=== PATIENT | male | born 2000 | race Caucasian/White ===

== ENCOUNTER 2025-04-18 20:40 | Emergency (ER) | payer OTHER, SELFPAY ==
[2025-04-18] MEDS ORDERED: ASPIRIN 81 MG CHEWABLE TABLET ONE (21:23)
[2025-04-18 21:29] LABS: Absolute Lymphocytes (CBC) 2.5 K/uL (0.7-4.9); Hematocrit 47.0 % (39.6-49.0); Hemoglobin 15.7 g/dL (13.6-17.9); MCH 29.4 pg (27.0-35.0); MCHC 33.4 g/dL (32.0-36.0); MCV 88.2 fL (80-100); MPV 8.7 fL (7.6-11.3); Nucleated RBC Absolute Count 0.0 (0-0); Nucleated Red Blood Cells % 0.2 % (0-0); RBC Red Blood Cell Count 5.33 M/uL (4.33-5.43); White Blood Count 7.10 thou/uL (4.3-10.9)
[2025-04-18 21:32] LABS: PT Prothrombin Time 12.6 SECONDS (10-13.0); Protime INR 1.12
[2025-04-18 21:45] LABS: ALT/SGPT 63 U/L (16-61); AST/SGOT 41 U/L (15-37); Albumin 4.0 g/dL (3.4-5.0); Albumin/Globulin Ratio 1.1 (1.1-1.8); Alkaline Phosphatase 96 U/L (45-117); Anion Gap 8.7 mEq/L (5.0-15.0); BUN Blood Urea Nitrogen 12 mg/dL (7-18); Globulin 3.7 g/dL (2.3-3.5); Glucose Level 81 mg/dL (74-106); Magnesium 2.2 mg/dL (1.6-2.4); NT PRO-BNP 20 pg/mL (<125); Potassium 3.7 mEq/L (3.5-5.1)
[2025-04-18 21:46] LABS: Bilirubin Indirect, Calculated 0.3 mg/dL (0.2-0.8); Troponin High Sensitivity < 3.0 pg/mL (<58.9)
--- NOTE | 2025-04-18 22:00 | RAD REPORT ---
EXAMINATION: ONE VIEW CHEST XR CLINICAL INDICATION: CHEST PAIN TECHNIQUE: Frontal chest projection is submitted. Examination is limited by patient positioning and t echnique. COMPARISON: No prior exam. FINDINGS: The lungs are well inflated and clear. The heart is upper limit of normal in size. No displaced fract ures identified. IMPRESSION: No acute intrathoracic abnormalities.
[2025-04-18] MEDS ORDERED: LIDOCAINE VISCOUS 2% 10ML ORAL SOLN ONE (22:52)
[2025-04-18] MEDS ORDERED: MAGNES/ALUMIN/SIMET 30ML UCUP ONE (22:52)
--- NOTE | 2025-04-18 23:38 | EDPHYS ---
Physician Documentation [facility] Name: Edgar Cardenas Age: 24 yrs Sex: Male : 2000 Arrival Date: 04/18/2025 Time: 20:40 Bed 8 Private MD: ED Physician Gerardo Peck HPI: 04/19 01:11 This 24 yrs old Male presents to ER via Ambulatory with complaints of Chest Pain. sb4 01:11 Patient reports left-sided anterior wall chest pain for approximately 2 to 3 weeks now. sb4 He states that sometimes it radiates to the right side of his chest and sometimes radiates to his left shoulder. States that sometimes he feels short of breath. But denies any dizziness, diaphoresis, nausea, vomiting. Denies any medical history. States that his pain was improving with famotidine but wanted to come in to be evaluated to make sure nothing else was going on. Historical: - Allergies: 04/18 20:53 No Known Allergies; br2 - Home Meds: 20:53 None [Active]; br2 - Immunization history:: Adult Immunizations not up to date. - Infectious Disease History:: Denies. - Social history:: Smoking status: Patient denies any tobacco usage or history of. Patient uses alcohol, occasionally. Patient/guardian denies using street drugs. ROS: 04/19 01:11 Constitutional: Negative for fever, chills, and weight loss, sb4 Cardiovascular: Positive for chest pain, All other systems are negative, Exam: 01:11 Constitutional: This is a well developed, well nourished patient who is awake, alert, sb4 and in no acute distress. Head/Face: Normocephalic, atraumatic. Eyes: Extra-ocular motions intact. Periorbital areas with no swelling, redness, or edema. ENT: Mucous membranes moist. Cardiovascular: Regular rate and rhythm with a normal S1 and S2. Respiratory: No increased work of breathing, no retractions or nasal flaring. Abdomen/GI: Soft, non-tender, no distension. Skin: Warm, dry with normal turgor. Normal color with no rashes, no lesions, and no evidence of cellulitis. Vital Signs: 04/18 20:49 BP 146 / 92; Pulse 65; Resp 18; Pulse Ox 100% ; Weight 108.86 kg; Height 5 ft. 10 in. ; br2 Pain 9/10; 21:30 BP 122 / 71; Pulse 57; Resp 16; Pulse Ox 100% on R/A; kd3 23:00 BP 135 / 96; Pulse 15; Resp 62; Pulse Ox 98% on R/A; kd3 04/19 00:08 BP 115 / 74; Pulse 84; Resp 16; Pulse Ox 98% on R/A; kd3 04/18 20:49 Body Mass Index 34.44 (108.86 kg, 177.8 cm) br2 04/18 20:49 Pain Scale: Adult br2 MDM: 04/18 20:52 Medical Screening Exam initiated sb4 04/19 01:12 Differential diagnosis: Pneumonia, costochondritis, pericarditis, anxiety, GERD, sb4 gastritis, esophagitis. Data reviewed: vital signs, nurses notes, lab test result(s), EKG, radiologic studies, plain films, and as a result, I will discharge patient. Historians other than the Patient: Spouse/Significant Other: Significant other. Care significantly affected by the following chronic conditions: Obesity. Scoring Tools HEART Score: History: ECG: Age: Risk Factors: 1 or 2 risk factors (1), Troponin: Total Score = 1. Counseling: I had a detailed discussion with the patient and/or guardian regarding the historical points, exam findings, and any diagnostic results supporting the discharge/admit diagnosis, lab results, radiology results, the need for outpatient follow up, for definitive care, to return to the emergency department if symptoms worsen or persist or if there are any questions or concerns that arise at home. Special discussion: Based on the patient's history, exam, and Dx evaluation, there is no indication for emergent intervention or inpatient Tx. It is understood by the patient/guardian that if the Sx's persist or worsen they need to return immediately for re-evaluation. 04/18 21:13 Order name: Basic Metabolic Panel; Complete Time: 21:46 sb4 04/18 21:13 Order name: CBC with Diff; Complete Time: 21:31 sb4 04/18 21:13 Order name: LFT's; Complete Time: 21:46 sb4 04/18 21:13 Order name: Magnesium; Complete Time: 21:46 sb4 04/18 21:13 Order name: NT PRO-BNP; Complete Time: 21:46 sb4 04/18 21:13 Order name: PT-INR; Complete Time: 21:37 sb4 04/18 21:13 Order name: Troponin HS; Complete Time: 21:46 sb4 04/18 21:13 Order name: XRAY Chest (1 view); Complete Time: 22:03 sb4 04/18 21:13 Order name: Cardiac monitoring; Complete Time: 21:14 sb4 04/18 21:13 Order name: EKG - Nurse/Tech; Complete Time: 21:14 sb4 04/18 21:13 Order name: IV Saline Lock; Complete Time: 21:14 sb4 04/18 21:13 Order name: Labs collected and sent; Complete Time: 21:25 sb4 04/18 21:13 Order name: O2 Per Protocol; Complete Time: 21:18 sb4 04/18 21:13 Order name: O2 Sat Monitoring; Complete Time: 21:18 sb4 EC:43 Rate is 60 beats/min. Rhythm is regular, Normal Sinus Rhythm. OR interval is normal at sb4 174 msec. QRS interval is normal at 82 msec. QT interval is normal at 376 msec. No Q waves. T waves are Normal. No ST changes noted. Clinical impression: No evidence of ischemia. Interpreted by me. Reviewed by me. Administered Medications: 04/18 21:25 Drug: Aspirin PO Chewable Tablet 324 mg PO once; 81 mg tablets x 4 Route: PO; kd3 22:57 Not Given (Physician Discretion): GI Cocktail with - (maaloxsuspension 30 ml, kd3 lidocaine mucous membrane liquid 2 % 20 ml, phenobarbital-[id number] ml) PO once 22:58 Drug: GI Cocktail without - (Maalox PO 30 ml, Lidocaine Mucous Membrane 2 % 15 kd3 ml) PO once Route: PO; Disposition Summary: 04/18/25 23:38 Discharge Ordered Notes: Location: Home sb4 Problem: new sb4 Symptoms: have improved sb4 Condition: Stable sb4 Diagnosis - Chest pain, unspecified sb4 - Gastro-esophageal reflux disease without esophagitis sb4 Followup: sb4 - With: Emergency Department - When: As needed - Reason: Trouble breathing, Worsening of condition Discharge Instructions: - Discharge Summary Sheet sb4 - Food Choices for Gastroesophageal Reflux Disease, Adult sb4 - Nonspecific Chest Pain, Adult, [id number]-hb-[id number] sb4 Forms: - Patient Portal Instructions sb4 - Leadership Thank You Letter sb4 Prescriptions: - Anaprox DS 550 mg Oral Tablet - take 1 tablet ORAL route every 12 hours As needed; 20 tablet; Refills: 0, sb4 Product Selection Permitted - Protonix 40 mg Oral Tablet - take 1 tablet ORAL route once daily; 30 tablet; Refills: 0, Product Selection sb4 Permitted Addendum: 04/20/2025 07:49 Co-signature as Attending Physician, Gerardo Peck MD I agree with the assessment and c brothers plan of care. Signatures: Dispatcher [employer] EDMS Gerardo Peck MD MD cha Doucette, Kyli, RN RN kd3 Staci Song PA-C PA-C sb4 Rabia Flores, RN RN br2 Corrections: (The following items were deleted from the chart) 04/18 21:13 21:13 BASIC METABOLIC PANEL+C.LAB.BRZ ordered. EDMS EDMS 21:13 21:13 CBC+H.LAB.BRZ ordered. EDMS EDMS 21:13 21:13 HEPATIC FUNCTION+C.LAB.BRZ ordered. EDMS EDMS 21:13 21:13 MAGNESIUM+C.LAB.BRZ ordered. EDMS EDMS 21:13 21:13 PROBNP+C.LAB.BRZ ordered. EDMS EDMS 21:13 21:13 PROTIME (+INR)+COAG.LAB.BRZ ordered. EDMS EDMS 21:13 21:13 Troponin High Sensitivity+C.LAB.BRZ ordered. EDMS EDMS 21:13 21:13 Chest Single View+RAD.RAD.BRZ ordered. EDMS EDMS
--- NOTE | 2025-04-18 23:38 | ER ---
Nurse's Notes [facility] Name: Edgar Cardenas Age: 24 yrs Sex: Male : 2000 Arrival Date: 04/18/2025 Time: 20:40 Bed 8 Private MD: Diagnosis: Chest pain, unspecified;Gastro-esophageal reflux disease without esophagitis Presentation: 04/18 20:49 Chief complaint: Patient states: LEFT CHEST PAIN AND RADIATES TO RIGHT CHEST WALL, SOB br2 FOR 3 WEEKS AND WORSE THE LAST WEEK. Coronavirus screen: Client denies travel out of the [place] in the last 14 days. Ebola Screen: Patient denies exposure to infectious person. Initial Sepsis Screen: Does the patient meet any 2 criteria? No. Patient's initial sepsis screen is negative. Does the patient have a suspected source of infection? No. Patient's initial sepsis screen is negative. Risk Assessment: Do you want to hurt yourself or someone else? Patient reports no desire to harm self or others. Onset of symptoms was March 28, 2025. 20:49 Method Of Arrival: Ambulatory br2 20:49 Acuity: YOLETTE 3 br2 Triage Assessment: 20:53 General: Appears in no apparent distress. comfortable, Behavior is calm, cooperative. br2 Pain: Complains of pain in anterior aspect of left upper chest and mid-sternal area Pain currently is 9 out of 10 on a pain scale. Historical: - Allergies: 20:53 No Known Allergies; br2 - Home Meds: 20:53 None [Active]; br2 - Immunization history:: Adult Immunizations not up to date. - Infectious Disease History:: Denies. - Social history:: Smoking status: Patient denies any tobacco usage or history of. Patient uses alcohol, occasionally. Patient/guardian denies using street drugs. Screenin/14 00:09 [facility] ED Fall Risk Assessment (Adult) History of falling in the last 3 months, kd3 including since admission No falls in past 3 months (0 pts) Confusion or Disorientation No (0 pts) Intoxicated or Sedated No (0 pts) Impaired Gait No (0 pts) Mobility Assist Device Used No (0 pt) Altered Elimination No (0 pt) Score/Fall Risk Level 0 - 2 = Low Risk Maintained a safe environment. Abuse screen: Denies threats or abuse. Denies injuries from another. Nutritional screening: No deficits noted. Tuberculosis screening: No symptoms or risk factors identified. Assessment: 04/18 21:06 General: Appears in no apparent distress. Behavior is calm, cooperative. Pain: kd3 Complains of pain in chest and mid-sternal area Pain radiates to chest and mid-sternal area Pain began 2-3 days ago. Cardiovascular: Heart tones S1 S2 present Rhythm is sinus rhythm Chest pain is described as vague. Vital Signs: 20:49 BP 146 / 92; Pulse 65; Resp 18; Pulse Ox 100% ; Weight 108.86 kg; Height 5 ft. 10 in. ; br2 Pain 9/10; 21:30 BP 122 / 71; Pulse 57; Resp 16; Pulse Ox 100% on R/A; kd3 23:00 BP 135 / 96; Pulse 15; Resp 62; Pulse Ox 98% on R/A; kd3 04/19 00:08 BP 115 / 74; Pulse 84; Resp 16; Pulse Ox 98% on R/A; kd3 04/18 20:49 Body Mass Index 34.44 (108.86 kg, 177.8 cm) br2 04/18 20:49 Pain Scale: Adult br2 ED Course: 04/18 20:44 Patient arrived in ED. mr 20:47 Staci Song PA-C is PHCP. sb4 20:47 Gerardo Peck MD is Attending Physician. sb4 20:53 Triage completed. br2 20:53 Arm band placed on right wrist. br2 21:05 Carol Barillas, JUANITA is Primary Nurse. kd3 21:06 EKG done, by ED staff, reviewed by Staci Song PA-C. Inserted saline lock: 20 gauge in kd3 right antecubital area, using aseptic technique. Blood collected. Flushed with 10 mL NS. 21:46 XRAY Chest (1 view) In Process Unspecified. EDMS 04/19 00:09 No provider procedures requiring assistance completed. IV discontinued, intact, kd3 bleeding controlled, No redness/swelling at site. Pressure dressing applied. Patient maintains SpO2 saturation greater than 95% on room air. 00:10 Patient has correct armband on for positive identification. Provided Education on: kd3 MEDICATIONS . Client placed on continuous cardiac and pulse oximetry monitoring. NIBP monitoring applied. equipment monitor phototypesetting on. Administered Medications: 04/18 21:25 Drug: Aspirin PO Chewable Tablet 324 mg PO once; 81 mg tablets x 4 Route: PO; kd3 22:57 Not Given (Physician Discretion): GI Cocktail with - (maaloxsuspension 30 ml, kd3 lidocaine mucous membrane liquid 2 % 20 ml, phenobarbital-pophqwzsnw27 ml) PO once 22:58 Drug: GI Cocktail without - (Maalox PO 30 ml, Lidocaine Mucous Membrane 2 % 15 kd3 ml) PO once Route: PO; Medication: 04/19 00:10 VIS not applicable for this client. kd3 Outcome: 04/18 23:38 Discharge ordered by . sb4 04/19 00:09 Discharged to home ambulatory, kd3 Condition: stable Discharge instructions given to patient, Instructed on discharge instructions, follow up and referral plans. Demonstrated understanding of instructions, follow-up care, medications, Prescriptions given X 2, 00:10 Patient left the ED. kd3 Signatures: Dispatcher [employer] EDMO Yanely Persaud, Reg Reg mr Carol Barillas RN RN kd3 Staci Song, PA-C PA-C sb4 Rabia Flores RN RN br2
[2025-04-19 10:48] VITALS: O2SAT 98
[2025-04-19 10:50] VITALS: BP 115/74
== END 2025-04-19 00:10 | disposition home or self-care (01) ==
LOC: ER 20:40
DX: K21.9 Gastro-esophageal reflux disease without esophagitis (principal)
CPT/HCPCS: 36415; 71045; 80048; 80076; 83735; 83880; 84484; 85025; 85610; 93005; 99285